=== PATIENT | male | born 1945 | race Caucasian/White ===

== ENCOUNTER 2017-06-04 12:42 | Emergency (ER) | payer MEDICARE, OTHER ==
[~2017-06-04] VITALS: Ht 172.7 cm; Wt 81.6 kg
[2017-06-04 12:42] VITALS: BP 125/86
[2017-06-04] MEDS ORDERED: METH4TAB2 PO (13:13)
--- NOTE | 2017-06-04 13:13 | PHYS DOC ---
Past History Past Medical History: No Pertinent History Smoking: Non-smoker Alcohol Use: None Drug Use: None Adult General Chief Complaint Chief Complaint: MEDICATION REFILL [facility] HPI 72-year-old male patient states he had right lower extremity pruritic rash after he was exposed to poison jina one week ago and was treated with Medrol dose pack and almost getting better but after finishing the medication his rash and itching getting worse again and needs another dose of Medrol Dosepak to resulting the rash completely. Patient denies fever and chills, diabetes, nausea and vomiting. Patient states he had the same problem previously and usually takes more than one package of Medrol Dosepak. Patient states he was not able to get to his primary care physician today and decided to come to ER. Review of Systems Review of Systems Constitutional: Denies fever or chills [] Eyes: Denies change in visual acuity, redness, or eye pain [] HENT: Denies nasal congestion or sore throat [] Respiratory: Denies cough or shortness of breath [] Cardiovascular: No additional information not addressed in HPI [] GI: Denies abdominal pain, nausea, vomiting, bloody stools or diarrhea [] : Denies dysuria or hematuria [] Musculoskeletal: Denies back pain or joint pain [] Integument: Reports rash Neurologic: Denies headache, focal weakness or sensory changes [] Endocrine: Denies polyuria or polydipsia [] All other systems were reviewed and found to be within normal limits, except as documented in this note. Physical Exam Physical Exam Constitutional: Well developed, well nourished, no acute distress, non-toxic appearance. [] HENT: Normocephalic, atraumatic, bilateral external ears normal, oropharynx moist, no oral exudates, nose normal. [] Eyes: PERRLA, EOMI, conjunctiva normal, no discharge. [] Neck: Normal range of motion, no tenderness, supple, no stridor. [] Cardiovascular:Heart rate regular rhythm, no murmur [] Lungs & Thorax: Bilateral breath sounds clear to auscultation [] Abdomen: Bowel sounds normal, soft, no tenderness, no masses, no pulsatile masses. [] Skin: Mild erythematous rash in anterior of right lower leg without sign of infection Back: No tenderness, no CVA tenderness. [] Extremities: No tenderness, no cyanosis, no clubbing, ROM intact, no edema. [] Neurologic: Alert and oriented X 3, normal motor function, normal sensory function, no focal deficits noted. [] Psychologic: Affect normal, judgement normal, mood normal. [] EKG EKG [] Radiology/Procedures Radiology/Procedures [] Course & Med Decision Making Course & Med Decision Making Evaluation of patient in ER showed 72-year-old male patient with history of poison jina presented with the feet of Medrol Dosepak for another episode of poison jina. Patient had pruritic rash in anterior right leg and prescription for Medrol Dosepak was given. [] Dragon Disclaimer Dragon Disclaimer This electronic medical record was generated, in whole or in part, using a voice recognition dictation system. Departure Departure: Impression: Primary Impression: Encounter for medication refill Additional Impression: Contact dermatitis Disposition: HOME, SELF-CARE (At 1311) Condition: STABLE Referrals: PCP,UNKNOWN (PCP) Patient Instructions: Poison Jina Additional Instructions: Follow-up with your primary care physician in 2 or 3 days Return to ER if not getting better Scripts Methylprednisolone (MEDROL) 4 Mg Tab.ds.pk 1 PKG PO UD, #1 PKG Prov: GRACE PEDERSON MD 06/04/17 Problem Qualifiers GRACE PEDERSON MD Jun 04, 2017 13:13
== END 2017-06-04 13:20 | disposition home or self-care (01) ==
LOC: EDSEX 12:42 → ER 12:42
DX: Z76.0 Encounter for issue of repeat prescription (principal); L25.5 Unspecified contact dermatitis due to plants, except food
CPT/HCPCS: 99283

== ENCOUNTER 2017-09-30 16:33 | Emergency (ER) | payer MEDICARE, OTHER ==
[~2017-09-30] VITALS: Ht 172.7 cm; Wt 81.6 kg
[~2017-09-30 16:33] MED LIST: METH4TAB2 PO
--- NOTE | 2017-09-30 16:50 | PHYS DOC ---
Past History Past Medical History: No Pertinent History Past Surgical History: No Surgical History Smoking: Non-smoker Alcohol Use: None Drug Use: None Adult General Chief Complaint Chief Complaint: CHEST PAIN HPI HPI 72-year-old male presenting to the emergency department today with a sensation of vertigo feeling nauseous about an hour prior to arrival. He states that "he could feel his blood pressure going up". Patient is a poor historian but generally just reports feeling nauseous and lightheaded and dizzy. He denies any sweatiness of the skin. He denies ever smoking. He denies a history of diabetes high blood pressure high cholesterol.The patient denies unilateral leg swelling hemoptysis family or personal history of blood clotting disorders. The pt denies recent immobilization or surgery. His symptoms feel better when he sits down. It is worse when he stands up. He denies any fevers chills or neck stiffness. He denies having any pain at that time and denies having chest pain currently. Review of systems is negative for chest pain shortness of breath abdominal pain. he denies vomiting fevers or chills. All other review of systems is negative unless otherwise noted in history of present illness. ED course: 72-year-old male presenting the emergency department today with vertiginous sensation and nausea. On arrival he is afebrile with mild hypertension. Pulse is within normal limits. On examination he is well appearing alert and with a normal neurologic exam. Regular rate and rhythm. Lungs are clear bilaterally. Abdomen is soft and nontender. EKG obtained and reviewed by myself shows sinus rhythm with a regular rate. ST segments are congruent. Not suggestive of ACS. Blood work unremarkable. Negative troponin. On reexamination the patient's vital signs remained stable. He remains well appearing and he reports his symptoms are improving. I offered the patient to be admitted to the hospital for monitoring and serial blood testing including serial troponins, however the patient declines and desires to be discharged. Essentially discharged patient to follow-up with his doctor next 2-3 days.The patient has been examined and was not found to have an emergency medical condition. The patient was then discharged home in stable condition to follow up with their primary care physician over the next 2-3 days. They were to return if their symptoms worsened or if they were concerned for any reason. Face -to-face discharge instructions and return precautions were given. Patient's questions were answered to their satisfaction. Patient is comfortable with plan. Review of Systems Review of Systems SEE ABOVE. Allergies Allergies Allergies Coded Allergies Type Severity Reaction Last Updated Verified tetracycline Allergy Intermediate scrotal swelling 06/04/17 Yes Physical Exam Physical Exam SEE ABOVE Constitutional: Well developed, well nourished, no acute distress, non-toxic appearance. HENT: Normocephalic, atraumatic, bilateral external ears normal, oropharynx moist, no oral exudates, nose normal. [] Eyes: PERRLA, EOMI, conjunctiva normal, no discharge. Neck: Normal range of motion, no tenderness, supple, no stridor. [] Cardiovascular:Heart rate regular rhythm, no murmur [] Lungs & Thorax: Bilateral breath sounds clear to auscultation Abdomen: Bowel sounds normal, soft, no tenderness, no masses, no pulsatile masses. [] Skin: Warm, dry, no erythema, no rash. Back: No tenderness, no CVA tenderness. [] Extremities: No tenderness, no cyanosis, no clubbing, ROM intact, no edema. [] Neurologic: Mental status: Awake oriented and alert x3 Cranial nerves: Extraocular movements intact, eyebrows laith bilaterally, smile symmetric, uvula elevation nl, shoulder shrug intact bilaterally, tongue protrusion normal DTRs: 2+ Sensation: equal and normal in all extremities Strength: 5/5 in upper and lower extremities bilaterally Psychologic: Affect normal, judgement normal, mood normal. [] EKG EKG [] Radiology/Procedures Radiology/Procedures [] Course & Med Decision Making Course & Med Decision Making Pertinent Labs and Imaging studies reviewed. (See chart for details) [] Dragon Disclaimer Dragon Disclaimer This electronic medical record was generated, in whole or in part, using a voice recognition dictation system. Departure Departure: Impression: Primary Impression: Lightheaded Additional Impression: Nauseous Disposition: 01 HOME, SELF-CARE Condition: STABLE Referrals: PCP,NO (PCP) RAVINDER GUEVARA MD Patient Instructions: Dizziness, [id number], Nausea, Adult, [id number] Additional Instructions: Thank you for allowing us to participate in your care today. Followup with your primary care physician in 3 days if your symptoms do not improve. Call your Primary Doctor tomorrow and inform them of your visit today. If you do not have a primary care provider you can ask for a list of our primary care providers. Return to the emergency department you have any new or concerning findings. This should be evaluated by the primary care physician and any necessary consulting services for continued management within a few days after discharge. Return to emergency room if you have any new or concerning symptoms including but not limited to fever, chills, nausea, vomiting, intractable pain, any new rashes, chest pain, shortness of air, uncontrolled bleeding, difficulty breathing, and/or vision loss. If at any time, you are having difficulty getting into your primary care doctor or a specialist, return to the emergency department. Problem Qualifiers GIANA GOLDMAN MD September 30, 2017 16:50
--- NOTE | 2017-09-30 17:15 | RAD ---
CHEST AP ONLY History: CHEST PAIN Comparison: None. Findings: Single view of the chest is submitted. There is no infiltrate, pneumothorax, or effusion. There is atherosclerotic calcification of the aortic arch. Pericardial cardiac silhouette is borderline enlarged. There is widening of the acromioclavicular joints bilaterally. Impression: 1. No acute radiographic abnormality is identified. Electronically signed by: Austyn Nicholas MD (09/30/2017 5:12 PM) [facility]
[2017-09-30 17:30] LABS: BASO % 0 % (0-3); EOS # 0.2 x10^3/uL (0.0-0.7); EOS % 2 % (0-3); HEMATOCRIT 49.3 % (39.0-53.0); HEMOGLOBIN 16.9 g/dL (13.0-17.5); LYMPH # 1.5 x10^3/uL (1.0-4.8); LYMPH % 16 % (24-48); MEAN CORPUSCULAR HEMOGLOBIN 31 pg (25-35); MEAN CORPUSCULAR HGB CONC 34 g/dL (31-37); MEAN CORPUSCULAR VOLUME 92 fL (79-100); MONO # 0.8 x10^3/uL (0.0-1.1); MONO % 9 % (0-9); NEUT # 6.7 x10^3uL (1.8-7.7); NEUT % 73 % (31-73); PLATELET COUNT 259 x10^3/uL (140-400); RED BLOOD COUNT 5.37 x10^6/uL (4.30-5.70); RED CELL DISTRIBUTION WIDTH 13.2 % (11.5-14.5); WHITE BLOOD COUNT 9.2 x10^3/uL (4.0-11.0)
[2017-09-30 17:41] VITALS: BP 139/80
[2017-09-30 17:41] LABS: ALBUMIN 3.7 g/dL (3.4-5.0); CALCIUM 9.2 mg/dL (8.5-10.1); CREATININE 0.9 mg/dL (0.7-1.3); DIRECT BILIRUBIN 0.2 mg/dL (0.0-0.2); GFR 82.5; POTASSIUM 4.1 mmol/L (3.5-5.1); TOTAL BILIRUBIN 0.8 mg/dL (0.2-1.0); TOTAL PROTEIN 7.2 g/dL (6.4-8.2)
--- NOTE | 2017-09-30 17:47 | EKG ---
[address] [address] Test Date: 2017-09-30 Test Time: 16:36:15 Pat Name: LOGAN STRICKLAND Department: Room: Gender: M [employer] Developer: SHARONDA : 1945 Requested By: GIANA GOLDMAN Order Number: [id number] Reading MD: Measurements Intervals Peck Rate: 87 P: 31 LA: 150 QRS: -13 QRSD: 92 T: 9 QT: 336 QTc: 410 Interpretive Statements SINUS RHYTHM LEFTWARD AXIS NO SPECIFIC ECG ABNORMALITIES RI6.01 No previous ECG available for comparison
== END 2017-09-30 18:10 | disposition home or self-care (01) ==
LOC: ER 16:33
DX: R42 Dizziness and giddiness (principal); R11.0 Nausea; Z88.1 Allergy status to other antibiotic agents
CPT/HCPCS: 36415; 71045; 80048; 80076; 83690; 84484; 85025; 93005; 99285-25